=== PATIENT | male | born 1945 | race Caucasian/White ===

== ENCOUNTER 2023-03-23 05:39 | Outpatient (CLI) | payer MEDICARE ==
[~2023-03-23] VITALS: Ht 185.5 cm; Wt 104.5 kg
[2023-03-24] MEDS ORDERED: PSYL660P17 PO (09:44)
[2023-03-24] MEDS ORDERED: CARB1TAB44 PO (09:52)
[2023-03-24] MEDS ORDERED: POTA10CA44 PO (09:52)
[2023-03-24] MEDS ORDERED: LEUP22.53 IM (09:52)
[2023-03-24] MEDS ORDERED: NAPR220C11 PO (09:52)
[2023-03-24] MEDS ORDERED: [UNRECOGNIZED DRUG - CODE] PO (09:52)
[2023-03-24] MEDS ORDERED: FISH1CAP15 PO (09:52)
[2023-03-24] MEDS ORDERED: ENTA200T6 PO (09:52)
== END 2023-03-24 09:55 | disposition home or self-care (01) ==
LOC: PREOP 05:39
PROVIDERS: ATTEND Specialist
DX: Z01.818 Encounter for other preprocedural examination (principal)

== ENCOUNTER 2023-03-26 08:34 | Day surgery (SDC) | payer MEDICARE ==
[~2023-03-26] VITALS: Ht 185.5 cm; Wt 104.5 kg
[~2023-03-26 08:34] MED LIST: CARB1TAB44 PO; ENTA200T6 PO; FISH1CAP15 PO; LEUP22.53 IM; NAPR220C11 PO; POTA10CA44 PO; PSYL660P17 PO; [UNRECOGNIZED DRUG - CODE] PO
[2023-03-26] MEDS: TETRACAINE 0.5% OPHTH SOLN 4 ML BTL (SINGLE DOSE ONLY) OU PRN ×4 (09:29→09:48)
[2023-03-26] MEDS ORDERED: MOXIFLOXACIN OPHTH SOLN 5 MG/ML 0.3 ML SYRINGE OP ONE (09:30)
[2023-03-26] MEDS ORDERED: POVIDONE (BETADINE) OPHTH SOLN 5% 30 ML OP ONE (09:30)
[2023-03-26] MEDS ORDERED: TIMOLOL 0.5% (CATARACTS) 0.3 ML BTL OU PRN (09:30)
[2023-03-26 09:34] VITALS: BP 132/71
[2023-03-26] MEDS: TROPICAMIDE 1% OPH SOLN (MYDRIACYL) 15 ML BTL OP SCH ×3 (09:37→09:48)
[2023-03-26] MEDS: PHENYLEPHRINE 10% OPHTH (NEO-SYN) 5 ML BTL OU SCH ×3 (09:37→09:48)
[2023-03-26] MEDS ORDERED: MIDAZOLAM 2 MG/2 ML (VERSED) VIAL ONE (10:06)
--- NOTE | 2023-03-26 10:09 | Ophthalmologist Pre-Op Note ---
Pre-Operative Progress Note H&P Reviewed The H&P was reviewed, patient examined and no changes noted. Date H&P Reviewed: Mar 26, 2023 Time H&P Reviewed: 10:09 Pre-Op Dx Cataract, Right Eye CONSTANTINE CARBAJAL MD Mar 26, 2023 10:09
--- NOTE | 2023-03-26 10:27 | Ophthalmology Operative Report ---
Cataract removal/placement IOL PREOPERATIVE DIAGNOSIS: Cataract Right Eye POSTOPERATIVE DIAGNOSIS: Cataract Right Eye PROCEDURE: Cataract removal and placement of posterior chamber implant, right eye SURGEON: Randell Carbajal ANESTHESIA: Topical with sedation COMPLICATIONS: None ESTIMATED BLOOD LOSS: Minimal DESCRIPTION OF PROCEDURE: After proper informed consent was obtained, the patient, a 77 male, was taken to the Operating Room and the right eye was anesthetized with tetracaine. The right eye was then prepped and draped in the usual manner. A wire lid speculum was placed. A paracentesis was made at the left hand position. Preservative free lidocaine was injected into the anterior chamber followed by viscoelastic. A clear corneal incision was made in the temporal position. A capsulorrhexis was preformed and the central nuclear and cortical material were removed. The posterior capsule was polished and Elías 24.0 AU00T0 IOL was placed into the capsular bag. The residual viscoelastic was aspirated and balanced saline solution was injected into the anterior chamber. Moxifloxacin was injected into the anterior chamber. The wound was checked and found to be water tight. The patient tolerated the procedure well without complications. RANDELL CARBAJAL MD Mar 26, 2023 10:27
[2023-03-26 10:42] VITALS: BP 102/98
[2023-03-26] MEDS ORDERED: acetaZOLAMIDE ER 500 MG CAP (DIAMOX SEQUELS) PO ONE (12:00)
--- NOTE | 2023-03-26 13:33 | Anesthesia-General Post-Op ---
MAC Patient Condition Mental Status/LOC: Same as Preop Cardiovascular: Satisfactory Nausea/Vomiting: Absent Respiratory: Satisfactory Pain: Controlled Complications: Absent Post Op Complications Complications None Follow Up Care/Instructions Patient Instructions None needed. Anesthesiology Discharge Order Discharge Order Patient is doing well, no complaints, stable vital signs, no apparent adverse anesthesia problems. No complications reported per nursing. JESSICA LAGUNA CRNA Mar 26, 2023 13:33
== END 2023-03-26 10:44 | disposition home or self-care (01) ==
LOC: SDC 08:34
PROVIDERS: ATTEND Specialist
DX: H25.9 Unspecified age-related cataract (principal); Z87.891 Personal history of nicotine dependence
CPT/HCPCS: 66984; V2632

== ENCOUNTER 2023-04-06 05:39 | Outpatient (CLI) | payer MEDICARE | END 2023-04-06 16:44 | disposition home or self-care (01) | LOC: PREOP 05:39 | PROVIDERS: ATTEND Specialist | DX: Z01.818 Encounter for other preprocedural examination (principal) ==

== ENCOUNTER 2023-04-09 09:24 | Day surgery (SDC) | payer MEDICARE ==
[~2023-04-09] VITALS: Ht 185.5 cm; Wt 104.5 kg
[2023-04-09] MEDS ORDERED: MOXIFLOXACIN OPHTH SOLN 5 MG/ML 0.3 ML SYRINGE OP ONE (09:30)
[2023-04-09] MEDS ORDERED: TIMOLOL 0.5% (CATARACTS) 0.3 ML BTL OU PRN (09:30)
[2023-04-09] MEDS ORDERED: POVIDONE (BETADINE) OPHTH SOLN 5% 30 ML OP ONE (09:30)
[2023-04-09] MEDS: TETRACAINE 0.5% OPHTH SOLN 4 ML BTL (SINGLE DOSE ONLY) OU PRN ×3 (09:33→09:52)
[2023-04-09] MEDS: TROPICAMIDE 1% OPH SOLN (MYDRIACYL) 15 ML BTL OP SCH ×3 (09:42→09:52)
[2023-04-09] MEDS: PHENYLEPHRINE 10% OPHTH (NEO-SYN) 5 ML BTL OU SCH ×3 (09:42→09:52)
[2023-04-09 09:47] VITALS: BP 124/66
[2023-04-09] MEDS ORDERED: MIDAZOLAM 2 MG/2 ML (VERSED) VIAL ONE (10:03)
--- NOTE | 2023-04-09 10:19 | Ophthalmologist Pre-Op Note ---
Pre-Operative Progress Note H&P Reviewed The H&P was reviewed, patient examined and no changes noted. Date H&P Reviewed: Apr 09, 2023 Time H&P Reviewed: 10:19 Pre-Op Dx Cataract, Left Eye CONSTANTINE CARBAJAL MD Apr 09, 2023 10:19
--- NOTE | 2023-04-09 10:41 | Ophthalmology Operative Report ---
Cataract removal/placement IOL PREOPERATIVE DIAGNOSIS: Cataract Left Eye POSTOPERATIVE DIAGNOSIS: Cataract Left Eye PROCEDURE: Cataract removal and placement of posterior chamber implant, left eye SURGEON: Randell Carbajal ANESTHESIA: Topical with sedation COMPLICATIONS: None ESTIMATED BLOOD LOSS: Minimal DESCRIPTION OF PROCEDURE: After proper informed consent was obtained, the patient, a 77 male, was taken to the Operating Room and the left eye was anesthetized with tetracaine. The left eye was then prepped and draped in the usual manner. A wire lid speculum was placed. A paracentesis was made at the left hand position. Preservative free lidocaine was injected into the anterior chamber followed by viscoelastic. A clear corneal incision was made in the temporal position. A capsulorrhexis was preformed and the central nuclear and cortical material were removed. The posterior capsule was polished and an Elías 24.0 AU00T0 was placed into the capsular bag. The residual viscoelastic was aspirated and balanced saline solution was injected into the anterior chamber. Moxifloxacin was injected into the anterior chamber. The wound was checked and found to be water tight. The patient tolerated the procedure well without complications. RANDELL CARBAJAL MD Apr 09, 2023 10:41
[2023-04-09 10:43] VITALS: BP 124/66
[2023-04-09] MEDS ORDERED: acetaZOLAMIDE ER 500 MG CAP (DIAMOX SEQUELS) PO ONE (12:00)
--- NOTE | 2023-04-09 13:45 | Anesthesia-General Post-Op ---
MAC Patient Condition Mental Status/LOC: Same as Preop Cardiovascular: Satisfactory Nausea/Vomiting: Absent Respiratory: Satisfactory Pain: Controlled Complications: Absent Post Op Complications Complications None Follow Up Care/Instructions Patient Instructions None needed. Anesthesiology Discharge Order Discharge Order Patient was doing well after the procedure with no complaints, stable vital signs, no apparent adverse anesthesia problems. No complications reported per nursing. JALEESA MASON 16, 2023 13:45
== END 2023-04-09 10:45 | disposition home or self-care (01) ==
LOC: SDC 09:24
PROVIDERS: ATTEND Specialist
DX: H25.9 Unspecified age-related cataract (principal); Z87.891 Personal history of nicotine dependence
CPT/HCPCS: 66984; V2632